=== PATIENT | male | born 1985 | race Caucasian/White ===

== ENCOUNTER 2018-09-16 22:07 | Emergency (ER) | payer OTHER ==
[2018-09-16 22:14] VITALS: BP 152/101; PULSE 78; RESP 19; TEMP 97.7
[2018-09-16] MEDS ORDERED: IPRATROPIUM-ALBUTEROL 3 ML NEB ONE (23:48)
[2018-09-16] MEDS ORDERED: predniSONE 50 MG TAB ONE (23:55)
[2018-09-17 06:09] LABS: Basophils # (A) 0.1 k/uL (0-0.2); Basophils % (A) 1 %; Eosinophils # (A) 0.3 k/uL (0-0.7); Eosinophils % (A) 3 %; HCT 41.7 % (39.0-53.0); HGB 14.7 gm/dL (13.0-17.5); Lymphocytes # (A) 4.1 k/uL (1.0-4.8); Lymphocytes % (A) 37 %; MCH 30.1 pg (25.0-35.0); MCHC 35.2 g/dL (31.0-37.0); MCV 85.5 fL (80.0-100.0); Mean Platelet Volume 7.7; Monocytes # (A) 0.8 k/uL (0-1.0); Monocytes % (A) 7 %; Neutrophils # (A) 5.5 k/uL (1.3-7.7); Neutrophils % (A) 49 %; Platelet Count 247 k/uL (150-450); RBC 4.87 m/uL (4.30-5.90); RDW 13.4 % (11.5-15.5); WBC 11.1 k/uL (3.8-10.6)
[2018-09-17 06:10] LABS: ALT 25 U/L (21-72); AST 33 U/L (17-59); African American GFR (CKD) >90 (>60 ml/min/1.73 sqM); Albumin 4.1 g/dL (3.5-5.0); Alkaline Phosphatase 94 U/L (38-126); Anion Gap 8 mmol/L; Blood Urea Nitrogen 28 mg/dL (9-20); Calcium 9.2 mg/dL (8.4-10.2); Carbon Dioxide 25 mmol/L (22-30); Chloride 104 mmol/L (98-107); Creatine Kinase 233 U/L (55-170); Glucose 93 mg/dL (74-99); Magnesium 1.9 mg/dL (1.6-2.3); Potassium 3.7 mmol/L (3.5-5.1); Sodium 137 mmol/L (137-145); Total Bilirubin 0.5 mg/dL (0.2-1.3)
--- NOTE | 2018-09-17 12:22 | XR ---
History: SOB Exam: XR CXR 2 VIEWS Comparison: None available FINDINGS: The lungs are clear. The cardiac and mediastinal contours are within limits. The visualized osseous structures appear within limits. IMPRESSION: No evidence of acute disease.
== END 2018-09-17 01:05 | disposition home or self-care (01) ==
LOC: EC 22:07
DX: J98.01 Acute bronchospasm (principal); Z87.891 Personal history of nicotine dependence; Z82.5 Family history of asthma and other chronic lower respiratory diseases
CPT/HCPCS: 36415; 85379; 83880; 80053; 82550; 83735; 84484; 85025; 71046; 99285; J7512

== ENCOUNTER 2021-03-10 07:56 | Emergency (ER) | payer BC, OTHER ==
[2021-03-10 08:05] VITALS: BP 154/94; PULSE 71; RESP 18; TEMP 98
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
== END 2021-03-10 09:03 | disposition home or self-care (01) ==
LOC: EC 07:56
DX: R09.89 Other specified symptoms and signs involving the circulatory and respiratory systems (principal); F17.200 Nicotine dependence, unspecified, uncomplicated; Z20.822 Contact with and (suspected) exposure to COVID-19
CPT/HCPCS: 87635; 99283

== ENCOUNTER 2024-11-30 10:19 | Emergency (ER) | payer OTHER, BC ==
[2024-11-30 10:40] VITALS: RESP 20
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
[2024-11-30 12:14] VITALS: BP 146/76; PULSE 76; TEMP 98
== END 2024-11-30 12:14 | disposition home or self-care (01) ==
LOC: EC 10:19
DX: S20.219A Contusion of unspecified front wall of thorax, initial encounter (principal); F17.200 Nicotine dependence, unspecified, uncomplicated; V89.2XXA Person injured in unspecified motor-vehicle accident, traffic, initial encounter; Y92.410 Unspecified street and highway as the place of occurrence of the external cause
CPT/HCPCS: 71046; 72170; 99284